=== PATIENT | male | born 1950 ===

== ENCOUNTER 2016-12-03 01:29 | Inpatient (IN) | payer MEDICAID, OTHER ==
[2016-12-03 01:29] VITALS: BMI 29.5
[2016-12-03 01:49] VITALS: O2SAT 100
--- NOTE | 2016-12-03 01:53 | ED PDOC ---
HPI: Psych/Substance Abuse Time Seen by Provider: 12/03/16 01:44 Chief Complaint (Nursing): Psychiatric Evaluation Chief Complaint (Provider): Crisis eval History Per: Patient Additional Complaint(s): 66 y/o male, whose PMHx includes schizophrenia, bipolar disorder, and drug abuse , presents to ED for evaluation of suicidal ideations. Pt admits to a plan, he wants to hang himself. No homicidal ideations. no physical complaints at this time. Past Medical History Reviewed: Nursing Documentation, Vital Signs Vital Signs: Last Vital Signs Temp 98 F 12/03/16 01:45 Pulse 81 12/03/16 01:45 Resp 16 12/03/16 01:45 BP 126/79 12/03/16 01:45 Pulse Ox 100 12/03/16 01:45 - Medical History PMH: Anxiety, Arthritis (osteoarthritis), Asthma, Bipolar Disorder, Bronchitis, COPD, Depression, Diabetes (type II), GERD, HTN, Hypercholesterolemia, Hyperlipidemia, Pneumonia, Schizophrenia Denies: Alzheimer's Disease, Anemia, Atrial Fibrillation, Cardia Arrhythmia, CHF, Crohn's Disease, Dementia, Diverticulitis, Emphysema, Fractures, Gastritis , Gall Bladder Disease, Hepatitis, HIV (Negative HIV test October 2014), Hyperthyroidism, Hypothyroidism, Kidney Stones, Migraine, Mitral Valve Prolapse , Multiple Sclerosis, Osteoporosis, Pancreatitis, Parkinson's Disease, Peripheral Edema, Personality Disorder, Pulmonary Embolism, Chronic Kidney Disease, Rheumatoid Arthritis, Seizures, Sickle Cell Disease, Sexually Transmitted Disease, Sleep Apnea, TIA - Surgical History Surgical History: Denies: Appendectomy, CABG, Carotid Endarterectomy, Cholecystectomy, Coronary Stent, Pacemaker, Tonsillectomy - Family History Family History: States: Unknown Family Hx, Hypertension - Living Arrangements Living Arrangements: Other - Social History Current smoker - smoking cessation education provided: No Alcohol: Occasional Drugs: Denies, Cannabis, Cocaine - Immunization History Hx Tetanus Toxoid Vaccination: No Hx Influenza Vaccination: No Hx Pneumococcal Vaccination: No - Home Medications Home Medications: Ambulatory Orders Medication Instructions Recorded Aspirin [Ecotrin] 81 mg PO DAILY #30 tabec 09/28/16 Folic Acid 1 mg PO DAILY tab 09/28/16 Multimineral/Multivitamin 1 tab PO DAILY tab 09/28/16 [Therapeutic-M Tab] Thiamine [Vitamin B1 Tab] 100 mg PO DAILY tab 09/28/16 Albuterol Sulfate [Proair Hfa] 2 puff IH RQ4 PRN inh 10/15/16 Benztropine [Cogentin] 2 mg PO BID #28 tab 10/15/16 Lisinopril [Zestril] 10 mg PO DAILY #30 tab 10/15/16 Metoprolol Tartrate [Lopressor] 25 mg PO BID #60 tab 10/15/16 Simvastatin 10 mg PO DAILY #30 tablet 10/15/16 cloNIDine [Catapres] 0.1 mg PO TID #90 tab 10/15/16 fluPHENAZine [Fluphenazine HCl] 10 mg PO Q12 #28 tab 10/15/16 traZODone [Desyrel] 100 mg PO HS #28 tab 10/15/16 - Allergies Allergies/Adverse Reactions: Allergies Allergy/AdvReac Type Severity Reaction Status Date / Time quetiapine Allergy palpitation Verified 12/03/16 01:45 s quetiapine fumarate AdvReac Severe palpitation Verified 12/03/16 01:45 [From Seroquel] s Review of Systems ROS Statement: Except As Marked, All Systems Reviewed And Found Negative Physical Exam - Reviewed Nursing Documentation Reviewed: Yes Vital Signs Reviewed: Yes - Physical Exam Appears: Positive for: Well, Non-toxic, No Acute Distress Head Exam: Positive for: ATRAUMATIC, NORMAL INSPECTION, NORMOCEPHALIC Skin: Positive for: Normal Color, Warm, DRY Eye Exam: Positive for: EOMI, Normal appearance, PERRL ENT: Positive for: Normal ENT Inspection Neck: Positive for: Normal, Painless ROM Cardiovascular/Chest: Positive for: Regular Rate, Rhythm Respiratory: Positive for: CNT, Normal Breath Sounds Gastrointestinal/Abdominal: Positive for: Normal Exam, Bowel Sounds, Soft Back: Positive for: Normal Inspection Extremity: Positive for: Normal ROM Neurologic/Psych: Positive for: Alert, Oriented - Laboratory Results Result Diagrams: 12/03/16 02:35 12/03/16 02:35 - ECG O2 Sat by Pulse Oximetry: 100 Medical Decision Making Medical Decision Making: Pt underwent crisis eval, see note. To be admitted for depression Pt medically cleared Disposition - Clinical Impression Clinical Impression: Depression - Patient ED Disposition Is Patient to be Admitted: Yes - Disposition Disposition Time: 04:57 Condition: STABLE - POA Present On Arrival: None
[2016-12-03 03:09] LABS: BASO % 0.8 % (0.0-2.0); EOS # 0.1 K/uL (0.0-0.7); EOS % 1.5 % (0.0-4.0); HEMATOCRIT 40.2 % (35.0-51.0); LYMPH # 1.7 K/uL (1.0-4.3); LYMPH % 34.8 % (20.0-40.0); MEAN CELL VOLUME 89.6 fl (80.0-94.0); MEAN CORPUSCULAR HEMOGLOBIN 29.7 pg (27.0-31.0); MEAN CORPUSCULAR HGB CONC 33.1 g/dL (33.0-37.0); MEAN PLATELET VOLUME 8.9 fl (7.2-11.7); MONO # 0.4 K/uL (0.0-0.8); MONO % 8.8 % (0.0-10.0); NEUT # 2.7 K/uL (1.8-7.0); NEUT % 54.1 % (50.0-75.0); NRBC % 0.1 % (0.0-0.0); RED CELL DISTRIBUTION WIDTH 15.4 % (11.5-14.5)
[2016-12-03 03:17] LABS: RBC URINE 1 /hpf (0-3); URINE BACTERIA RARE (<OCC); URINE BILIRUBIN NEGATIVE (NEGATIVE); URINE BLOOD NEGATIVE (NEGATIVE); URINE COLOR YELLOW (YELLOW); URINE GLUCOSE (UA) NEG (Normal); URINE KETONE NEGATIVE (NEGATIVE); URINE LEUKOCYTE ESTERASE NEG Leu/uL (Negative); URINE PROTEIN NEGATIVE (NEGATIVE); WBC URINE 1 /hpf (0-5)
[2016-12-03 03:19] LABS: CHLORIDE 109 mmol/L (98-107); POTASSIUM 3.7 MMOL/L (3.6-5.0); SODIUM 142 mmol/l (132-148)
[2016-12-03 03:21] LABS: ALB/GLOB RATIO 1.1 (1.0-2.1); ALKALINE PHOSPHATASE 36 U/L (38-126); AST/SGOT 30 U/L (17-59); BILIRUBIN,TOTAL 0.5 mg/dl (0.2-1.3); BLOOD UREA NITROGEN 8 mg/dl (9-20); CARBON DIOXIDE 20 mmol/L (22-30); GFR AFRICAN-AMERICAN > 60; TOTAL PROTEIN 6.6 G/DL (6.3-8.2)
[2016-12-03 03:22] LABS: ALCOHOL SERUM 50 mg/dl (0-10); ALT/SGPT 15 U/L (21-72); CALCIUM 8.5 mg/dL (8.4-10.2); GLUCOSE,RANDOM 136 mg/dL (75-110)
[2016-12-03] MEDS ORDERED: Alum-Mag Hydrox-Simethicone Susp (30 mL) PO PRN (05:40)
[2016-12-03] MEDS ORDERED: Bismuth Subsalicylate 262 mg/15 ml Sus (240 ml) PO PRN (05:40)
[2016-12-03] MEDS ORDERED: Magnesium Hydroxide Susp 30 ml UD PO PRN (05:40)
[2016-12-03 07:03] LABS: IRON 76 ug/dL (49-181)
[2016-12-03 07:21] LABS: T4 7.6 ug/dl (5.5-11.0)
[2016-12-03 07:34] LABS: THYROID STIMULATING HORMONE 0.43 mIU/ML (0.46-4.68)
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
--- NOTE | 2016-12-03 12:10 | CP.PCM.CON ---
History of Present Illness - History of Present Illness History of Present Illness: 66 yo male with history of heroin used and alcohol abuse admitted to [facility] because of hearing voices and suicidal ideation. Pt was recently discharged on after getting admitted for the same reason. Review of Systems - Review of Systems All systems: reviewed and no additional remarkable complaints except (aside from those mentioned above, 12 point system review were negative by me) Past Patient History - Infectious Disease Hx of Infectious Diseases: None - Tetanus Immunizations Tetanus Immunization: Allergy to Tetanus Vaccine, Unknown - Past Medical History & Family History Past Medical History?: Yes - Past Social History Smoking Status: Light Smoker < 10 Cigarettes Daily Alcohol: Occasional Drugs: Denies, Cannabis, Cocaine - CARDIAC Hx Atrial Fibrillation: No Hx Cardia Arrhythmia: No Hx Congestive Heart Failure: No Hx Hypercholesterolemia: Yes Hx Hypertension: Yes Hx Mitral Valve Prolapse: No Hx Pacemaker: No Hx Peripheral Edema: No - PULMONARY Hx Asthma: Yes Hx Bronchitis: Yes Hx Chronic Obstructive Pulmonary Disease (COPD): Yes Hx Emphysema: No Hx Pneumonia: Yes Hx Pulmonary Embolism: No Hx Sleep Apnea: No - NEUROLOGICAL Hx Alzheimer's Disease: No Hx Dementia: No Hx Migraine: No Hx Multiple Sclerosis: No Hx Parkinson's Disease: No Hx Seizures: No Hx Transient Ischemic Attacks (TIA): No - HEENT Hx HEENT Problems: No - RENAL Hx Chronic Kidney Disease: No Hx Kidney Stones: No - ENDOCRINE/METABOLIC Hx Hyperthyroidism: No Hx Hypothyroidism: No - HEMATOLOGICAL/ONCOLOGICAL Hx Anemia: No Hx Human Immunodeficiency Virus (HIV): No (Negative HIV test October 2014) Hx Sickle Cell Disease: No - INTEGUMENTARY Hx Dermatological Problems: No - MUSCULOSKELETAL/RHEUMATOLOGICAL Hx Arthritis: Yes (osteoarthritis) Hx Falls: Yes Hx Fractures: No Hx Osteoporosis: No Hx Rheumatoid Arthritis: No - GASTROINTESTINAL Hx Crohn's Disease: No Hx Diverticulitis: No Hx Gall Bladder Disease: No Hx Gastritis: No Hx Pancreatitis: No - GENITOURINARY/GYNECOLOGICAL Hx Sexually Transmitted Disorders: No - PSYCHIATRIC Hx Anxiety: Yes Hx Bipolar Disorder: Yes Hx Depression: Yes Hx Substance Use: Yes - SURGICAL HISTORY Hx Appendectomy: No Hx Carotid Endarterectomy: No Hx Cholecystectomy: No Hx Coronary Artery Bypass Graft: No Hx Coronary Stent: No Hx Tonsillectomy: No - ANESTHESIA Hx Anesthesia: Yes Hx Anesthesia Reactions: No Meds Allergies/Adverse Reactions: Allergies Allergy/AdvReac Type Severity Reaction Status Date / Time quetiapine Allergy palpitation Verified 12/03/16 01:45 s quetiapine fumarate AdvReac Severe palpitation Verified 12/03/16 01:45 [From Seroquel] s - Medications Medications: Current Medications Acetaminophen (Tylenol 325mg Tab) 650 mg PO Q4 PRN PRN Reason: Pain, moderate (4-7) Al Hydrox/Mg Hydrox/Simethicone (Maalox Plus 30 Ml) 30 ml PO Q4 PRN PRN Reason: Dyspepsia Benztropine Mesylate (Cogentin) 2 mg PO Q12 [facility] Bismuth Subsalicylate (Pepto-Bismol) 524 mg PO Q4 PRN PRN Reason: Diarrhea Chlordiazepoxide (Librium) 50 mg PO Q12 [facility] Last Admin: 12/03/16 09:30 Dose: 50 mg Diphenhydramine HCl (Benadryl) 50 mg PO HS PRN PRN Reason: Sleep Fluphenazine HCl (Prolixin) 10 mg PO Q12 [facility] Haloperidol (Haldol) 5 mg PO Q4 PRN PRN Reason: Agitation Haloperidol Lactate (Haldol) 5 mg IM Q4 PRN PRN Reason: Agitation Ibuprofen (Motrin Tab) 600 mg PO Q8 PRN PRN Reason: Pain, moderate (4-7) Loperamide HCl (Imodium) 2 mg PO QID PRN PRN Reason: Diarrhea Lorazepam (Ativan) 2 mg PO Q4 PRN PRN Reason: Other Magnesium Hydroxide (Milk Of Magnesia) 30 ml PO HS PRN PRN Reason: Constipation Trazodone HCl (Desyrel) 100 mg PO HS [facility] Physical Exam - Constitutional Appears: No Acute Distress - Head Exam Head Exam: ATRAUMATIC - Eye Exam Eye Exam: absent: Scleral icterus - ENT Exam ENT Exam: Mucous Membranes Moist - Neck Exam Neck exam: Negative for: Meningismus - Respiratory Exam Respiratory Exam: absent: Rhonchi, Wheezes, Respiratory Distress - Cardiovascular Exam Cardiovascular Exam: REGULAR RHYTHM, +S1, +S2 - GI/Abdominal Exam GI & Abdominal Exam: Soft. absent: Tenderness - Rectal Exam Rectal Exam: Deferred - Back Exam Back exam: NORMAL INSPECTION - Neurological Exam Neurological exam: Alert - Psychiatric Exam Psychiatric exam: Flat Affect - Skin Skin Exam: Dry Results - Vital Signs Recent Vital Signs: Last Vital Signs Temp 95.9 F L 12/03/16 06:00 Pulse 66 12/03/16 06:00 Resp 18 12/03/16 06:00 BP 142/63 12/03/16 06:00 Pulse Ox 100 12/03/16 04:57 - Labs Result Diagrams: 12/03/16 02:35 12/03/16 02:35 Labs: Laboratory Results - last 24 hr 12/03/16 12/03/16 12/03/16 06:00 06:00 06:00 Hemoglobin A1c 6.3 Iron TIBC % Saturation Ferritin 79.7 Triglycerides 103 D Cholesterol 140 LDL Cholesterol Direct 73 HDL Cholesterol 50 Vitamin B12 267 Free T4 1.09 Thyroxine (T4) 7.60 TSH 3rd Generation 0.43 L 12/03/16 06:00 Hemoglobin A1c Iron 76 TIBC 263 % Saturation 29 Ferritin Triglycerides Cholesterol LDL Cholesterol Direct HDL Cholesterol Vitamin B12 Free T4 Thyroxine (T4) TSH 3rd Generation Assessment & Plan (1) Suicidal ideation Status: Acute Comment: psyche is managing (2) HTN (hypertension) Status: Chronic Priority: Medium Comment: BP stable. continue Metoprolol 25mg PO BID. Hold on Lisinopril and Clonidine (3) Asthma Status: Chronic Priority: Low Comment: asymptomatic. Albuterol inhaler 2 puffs q 4hrs prn for SOB or wheezing
[2016-12-03] MEDS ORDERED: Albuterol HFA 90 mcg/actuation (8 g) IH PRN (12:17)
--- NOTE | 2016-12-03 16:03 | RAD ---
HISTORY: med screening COMPARISON: Chest x-ray performed 10/15/16 TECHNIQUE: Chest, one view. FINDINGS: LUNGS: No focal consolidation. Please note that chest x-ray has limited sensitivity for the detection of pulmonary masses. PLEURA: No significant pleural effusion identified. No definite pneumothorax . CARDIOVASCULAR: Heart size appears within normal limits. Dense atherosclerotic calcification of the aortic knob. OSSEOUS STRUCTURES: No acute osseous abnormality identified. VISUALIZED UPPER ABDOMEN: Unremarkable. OTHER FINDINGS: None. IMPRESSION: No focal consolidation, significant pleural effusion, or definite pneumothorax identified.
[2016-12-03 17:45] LABS: FOLATE 14.7 ng/mL
--- NOTE | 2016-12-04 00:10 | CARD ---
APPROVED REPORT EKG Measurement Heart [id number] <Conclusion> Normal sinus rhythm Normal ECG
[2016-12-04] MEDS: Multivitamin With Minerals Tab PO SCH (08:51)
--- NOTE | 2016-12-04 08:56 | PCM.PYCHPN ---
Psychiatric Progress Note - Psychiatric Progress Note Patient seen today, length of contact: Patient evaluated, case discussed with team, chart reviewed, 35 min Patient Chief Complaint: "I am hearing voices telling me to kill myself" Problems Identified/Issues Discussed: Patient continues to reports command auditory hallucinations to kill himself by hanging. He continues to feel depressed and hopeless. He is reporting stomach cramps from heroin withdrawal and discussed a desire to stop using heroin. He requested to stop trazodone because he feels it is "too strong" for him, but denied any actual adverse effects from the medication. Medication Change: Yes (Taper Librium, stop Trazodone) Medical Record Reviewed: Yes Consults ordered or reviewed: Medicine consult appreciated Mental Status Examination - Cognitive Function Orientation: Person, Place, Situation, Time Memory: Intact Attention: WNL Concentration: WNL Association: WNL Fund of Knowledge: [facility] Decription of patient's judgement and insights: Poor insight/ judgment - Mood Mood: Depressed - Affect Affect: Constricted - Speech Speech: Appropriate - Formal Thought Process Formal Thought Process: Hallucinations Psychotic Thoughts and Behaviors: +CAH to kill himself - Suicidal Ideation Suicidal Ideation: Yes - Homicidal Ideation Homicidal Ideation: No Goal/Treatment Plan - Goal/Treatment Plan Need for Continued Stay: Remain at risks for inpatient hospitalization, Severe depression anxiety, Discharge may exacerbated symptoms, Severe functional impairment Progress Toward Problem(s) and Goals/Treatment Plan: 66 yo male w/ h/o schizoaffective disorder, presents acutely decompensated, w/ hallucinations and suicidal ideation, in the context of heroin/benzodiazepine/ marijuana abuse and non-compliance with medications. -Medicine consult appreciated -Continue Prolixin 10 mg PO Q12 hr, Benztropin 2 mg PO BID -Stop Trazodone 100 mg PO HS -PRNs for Opioid withdrawal -Taper Librium -Individual and group therapy -1:1 as the patient will not contract for safety at this time Estimated Date of D/C: 12/10/16
[2016-12-05] MEDS: Multivitamin With Minerals Tab PO SCH (08:14)
--- NOTE | 2016-12-05 10:02 | PCM.PYCHPN ---
Psychiatric Progress Note - Psychiatric Progress Note Patient seen today, length of contact: Patient evaluated, case discussed with team, chart reviewed, 35 min Patient Chief Complaint: "I am hearing voices telling me to kill myself" Problems Identified/Issues Discussed: Patient continues to reports command auditory hallucinations to kill himself by hanging. He has told various staff members that he does not want to live and wants to kill himself. He keeps walking to the door as if he wants to elope. He is bizarre at times and required PRN medication last night for agitation. Patient submitted a 48 hour letter and will be screened for involuntary admission as he is an active danger to himself at this time. Medication Change: Yes (Stop Librium) Medical Record Reviewed: Yes Mental Status Examination - Cognitive Function Orientation: Person, Place, Situation, Time Memory: Intact Attention: WNL Concentration: WNL Association: [facility] Fund of Knowledge: [facility] Decription of patient's judgement and insights: Poor insight/ judgment - Mood Mood: Depressed - Affect Affect: Constricted - Speech Speech: Appropriate - Formal Thought Process Formal Thought Process: Hallucinations Psychotic Thoughts and Behaviors: +CAH to kill himself - Suicidal Ideation Suicidal Ideation: Yes Plan: Hang himself - Homicidal Ideation Homicidal Ideation: No Goal/Treatment Plan - Goal/Treatment Plan Need for Continued Stay: Remain at risks for inpatient hospitalization, Severe depression anxiety, Discharge may exacerbated symptoms, Severe functional impairment Progress Toward Problem(s) and Goals/Treatment Plan: 66 yo male w/ h/o schizoaffective disorder, presents acutely decompensated, w/ hallucinations and suicidal ideation, in the context of heroin/benzodiazepine/ marijuana abuse and non-compliance with medications. Patient submitted a 48 hour letter and will be screened for involuntary admission as he is an active danger to himself at this time. -Continue Prolixin 10 mg PO Q12 hr, Benztropin 2 mg PO BID -PRNs for Opioid withdrawal -Stop Librium -Individual and group therapy -1:1 as the patient will not contract for safety at this time -Screen for involuntary commitment Estimated Date of D/C: 12/10/16
[2016-12-06] MEDS: Multivitamin With Minerals Tab PO SCH (12:22)
--- NOTE | 2016-12-06 13:22 | PCM.PYCHPN ---
Psychiatric Progress Note - Psychiatric Progress Note Patient seen today, length of contact: Patient evaluated, case discussed with team, chart reviewed, 35 min Patient Chief Complaint: "I am hearing voices telling me to kill myself" Problems Identified/Issues Discussed: Patient continues to reports command auditory hallucinations to kill himself. He can not contract for safety and needs continued 1:1. He was screened by [facility] yesterday and was rejected due to concerns that he may have altered mental status, so a neurology consult was requested by [facility] for medical clearance. Medication Change: No Medical Record Reviewed: Yes Mental Status Examination - Cognitive Function Orientation: Person, Place, Situation, Time Memory: Intact Attention: WNL Concentration: WNL Association: WNL Fund of Knowledge: [facility] Decription of patient's judgement and insights: Poor insight/ judgment - Mood Mood: Depressed - Affect Affect: Constricted - Speech Speech: Appropriate - Formal Thought Process Formal Thought Process: Hallucinations Psychotic Thoughts and Behaviors: +CAH to kill himself - Suicidal Ideation Suicidal Ideation: Yes - Homicidal Ideation Homicidal Ideation: No Goal/Treatment Plan - Goal/Treatment Plan Need for Continued Stay: Remain at risks for inpatient hospitalization, Severe depression anxiety, Discharge may exacerbated symptoms, Severe functional impairment Progress Toward Problem(s) and Goals/Treatment Plan: 66 yo male w/ h/o schizoaffective disorder, presents acutely decompensated, w/ hallucinations and suicidal ideation, in the context of heroin/benzodiazepine/ marijuana abuse and non-compliance with medications. -Continue Prolixin 10 mg PO Q12 hr, Benztropin 2 mg PO BID -PRNs for Opioid withdrawal -Neurology consult for evaluation of possible neurological issues causing current presentation and/or possible altered mental status; patient will not be accepted to [facility] without clearance from neurology -Individual and group therapy -1:1 as the patient will not contract for safety at this time Estimated Date of D/C: 12/11/16
--- NOTE | 2016-12-06 16:03 | CP.PCM.CON ---
History of Present Illness - History of Present Illness History of Present Illness: Mr. Weaver is a 66-year-old homeless man who brought himself into ED with complaints of hearing voices and feeling suicidal. The voices are telling him to kill himself. According to nursing, the patient has been more violent than usual and more combative than usual. He uses heroin and drinks alcohol daily. He has tried to wrap different objects around his neck since being in the hospital. These include a blood pressure cuff and a TV cord. Neurology was consulted to assist with the management and care. Review of Systems - Review of Systems Systems not reviewed;Unavailable: Altered Mental Status, Uncooperative, Psychotic Past Patient History - Infectious Disease Hx of Infectious Diseases: None - Tetanus Immunizations Tetanus Immunization: Allergy to Tetanus Vaccine, Unknown - Past Medical History & Family History Past Medical History?: Yes - Past Social History Smoking Status: Light Smoker < 10 Cigarettes Daily Alcohol: Occasional Drugs: Denies, Cannabis, Cocaine - CARDIAC Hx Atrial Fibrillation: No Hx Cardia Arrhythmia: No Hx Congestive Heart Failure: No Hx Hypercholesterolemia: Yes Hx Hypertension: Yes Hx Mitral Valve Prolapse: No Hx Pacemaker: No Hx Peripheral Edema: No - PULMONARY Hx Asthma: Yes Hx Bronchitis: Yes Hx Chronic Obstructive Pulmonary Disease (COPD): Yes Hx Emphysema: No Hx Pneumonia: Yes Hx Pulmonary Embolism: No Hx Sleep Apnea: No - NEUROLOGICAL Hx Alzheimer's Disease: No Hx Dementia: No Hx Migraine: No Hx Multiple Sclerosis: No Hx Parkinson's Disease: No Hx Seizures: No Hx Transient Ischemic Attacks (TIA): No - HEENT Hx HEENT Problems: No - RENAL Hx Chronic Kidney Disease: No Hx Kidney Stones: No - ENDOCRINE/METABOLIC Hx Hyperthyroidism: No Hx Hypothyroidism: No - HEMATOLOGICAL/ONCOLOGICAL Hx Anemia: No Hx Human Immunodeficiency Virus (HIV): No (Negative HIV test October 2014) Hx Sickle Cell Disease: No - INTEGUMENTARY Hx Dermatological Problems: No - MUSCULOSKELETAL/RHEUMATOLOGICAL Hx Arthritis: Yes (osteoarthritis) Hx Falls: Yes Hx Fractures: No Hx Osteoporosis: No Hx Rheumatoid Arthritis: No - GASTROINTESTINAL Hx Crohn's Disease: No Hx Diverticulitis: No Hx Gall Bladder Disease: No Hx Gastritis: No Hx Pancreatitis: No - GENITOURINARY/GYNECOLOGICAL Hx Sexually Transmitted Disorders: No - PSYCHIATRIC Hx Anxiety: Yes Hx Bipolar Disorder: Yes Hx Depression: Yes Hx Substance Use: Yes - SURGICAL HISTORY Hx Appendectomy: No Hx Carotid Endarterectomy: No Hx Cholecystectomy: No Hx Coronary Artery Bypass Graft: No Hx Coronary Stent: No Hx Tonsillectomy: No - ANESTHESIA Hx Anesthesia: Yes Hx Anesthesia Reactions: No Meds Allergies/Adverse Reactions: Allergies Allergy/AdvReac Type Severity Reaction Status Date / Time quetiapine Allergy palpitation Verified 12/03/16 01:45 s quetiapine fumarate AdvReac Severe palpitation Verified 12/03/16 01:45 [From Seroquel] s - Medications Medications: Current Medications Acetaminophen (Tylenol 325mg Tab) 650 mg PO Q4 PRN PRN Reason: Pain, moderate (4-7) Al Hydrox/Mg Hydrox/Simethicone (Maalox Plus 30 Ml) 30 ml PO Q4 PRN PRN Reason: Dyspepsia Albuterol (Ventolin Hfa 90 Mcg/Actuation (8 G)) 2 puff IH RQ4 PRN PRN Reason: Shortness of Breath Aspirin (Ecotrin) 81 mg PO DAILY [facility] Last Admin: 12/06/16 12:22 Dose: 81 mg Benztropine Mesylate (Cogentin) 2 mg PO Q12 [facility] Last Admin: 12/06/16 12:23 Dose: 2 mg Bismuth Subsalicylate (Pepto-Bismol) 524 mg PO Q4 PRN PRN Reason: Diarrhea Diphenhydramine HCl (Benadryl) 50 mg PO HS PRN PRN Reason: Sleep Last Admin: 12/05/16 01:27 Dose: 50 mg Fluphenazine HCl (Prolixin) 10 mg PO Q12 [facility] Last Admin: 12/06/16 12:23 Dose: 10 mg Folic Acid (Folic Acid) 1 mg PO DAILY [facility] Last Admin: 12/06/16 12:23 Dose: 1 mg Haloperidol (Haldol) 5 mg PO Q4 PRN PRN Reason: Agitation Last Admin: 12/05/16 01:27 Dose: 5 mg Haloperidol Lactate (Haldol) 5 mg IM Q4 PRN PRN Reason: Agitation Ibuprofen (Motrin Tab) 600 mg PO Q8 PRN PRN Reason: Pain, moderate (4-7) Loperamide HCl (Imodium) 2 mg PO QID PRN PRN Reason: Diarrhea Last Admin: 12/04/16 08:53 Dose: 2 mg Lorazepam (Ativan) 2 mg PO Q4 PRN PRN Reason: Other Last Admin: 12/05/16 10:46 Dose: 2 mg Magnesium Hydroxide (Milk Of Magnesia) 30 ml PO HS PRN PRN Reason: Constipation Metoprolol Tartrate (Lopressor) 25 mg PO BID [facility] Last Admin: 12/06/16 12:31 Dose: 25 mg Multivitamins/Minerals (Therapeutic-M Tab) 1 tab PO DAILY [facility] Last Admin: 12/06/16 12:22 Dose: 1 tab Thiamine HCl (Vitamin B1 Tab) 100 mg PO DAILY [facility] Last Admin: 12/06/16 12:22 Dose: 100 mg Zolpidem Tartrate (Ambien) 5 mg PO HS PRN PRN Reason: Insomnia Last Admin: 12/04/16 22:58 Dose: 5 mg Physical Exam - Constitutional Appears: No Acute Distress, Unkempt, Agitated - Head Exam Head Exam: ATRAUMATIC, NORMAL INSPECTION, NORMOCEPHALIC - Eye Exam Eye Exam: EOMI, Normal appearance, PERRL - ENT Exam ENT Exam: Mucous Membranes Moist, Normal Exam - Respiratory Exam Respiratory Exam: Clear to Auscultation Bilateral, NORMAL BREATHING PATTERN - Cardiovascular Exam Cardiovascular Exam: REGULAR RHYTHM, +S1, +S2 - GI/Abdominal Exam GI & Abdominal Exam: Normal Bowel Sounds, Soft. absent: Tenderness - Rectal Exam Rectal Exam: Deferred - Extremities Exam Extremities exam: Positive for: normal inspection - Back Exam Back exam: NORMAL INSPECTION - Neurological Exam Neurological exam: Alert, CN II-XII Intact, Normal Gait, Oriented x3, Reflexes Normal - Expanded Neurological Exam Expanded Patient oriented to: person, place, time Cranial nerves: EOM's Intact: Normal, Facial Sensation: Normal Cerebellar Function: Finger to Nose: Normal Upper motor neuron: Babinski Sign: Normal Sensory exam: Lower Extremity Light Touch: Normal, Lower Extremity Pin Prick: Normal, Upper Extremity Light Touch: Normal, Upper Extremity Pin Prick: Normal Neuro motor strength exam: Left Upper Extremity: 5, Right Upper Extremity: 5, Left Lower Extremity: 5, Right Lower Extremity: 5 DTR: Achilles Tendon Left: 2+, Achilles Tendon Right: 2+, Bicep Left: 2+, Bicep Right: 2+, Brachioradialis Left: 2+, Brachioradialis Right: 2+, Patellar Left: 2 +, Patellar Right: 2+, Tricep Left: 2+, Tricep Right: 2+ - Psychiatric Exam Psychiatric exam: Agitated, Depressed, Suicidal Ideation - Skin Skin Exam: Dry, Intact, Normal Color, Warm Results - Vital Signs Recent Vital Signs: Last Vital Signs Temp 98.2 F 12/06/16 15:39 Pulse 65 12/06/16 15:39 Resp 18 12/06/16 15:39 BP 131/62 12/06/16 15:39 Pulse Ox 100 12/03/16 04:57 - Labs Result Diagrams: 12/03/16 02:35 12/03/16 02:35 Assessment & Plan (1) Schizoaffective disorder, bipolar type Assessment and Plan: The patient likely has multi-factorial causes to develop hallucinations, depression, agitation, combativeness. The neurochemistry involved is being manipulated by heroin and alcohol in conjunction with his baseline psychiatric illness. I will defer to psychiatry for the management of this patient since there are no focal neurologic deficits and no suspicion of dementia or delirium. Thank you. Status: Acute Priority: High
--- NOTE | 2016-12-07 08:42 | PCM.PYCHPN ---
Psychiatric Progress Note - Psychiatric Progress Note Patient seen today, length of contact: Patient evaluated, case discussed with team, chart reviewed, 35 min Patient Chief Complaint: "I am hearing voices telling me to kill myself" Problems Identified/Issues Discussed: Patient continues to reports command auditory hallucinations to kill himself. He can not contract for safety and needs continued 1:1. He retracted his 48 hour letter yesterday and is agreeable to continued psychiatric treatment. Neurology consult done- no acute neurological deficits or signs of delirium at this time. Medication Change: No Medical Record Reviewed: Yes Consults ordered or reviewed: Neurology consult Mental Status Examination - Cognitive Function Orientation: Person, Place, Situation, Time Memory: Intact Attention: WNL Concentration: WNL Association: WNL Fund of Knowledge: [place] Decription of patient's judgement and insights: Poor insight/ judgment - Mood Mood: Depressed - Affect Affect: Constricted - Speech Speech: Appropriate - Formal Thought Process Formal Thought Process: Hallucinations Psychotic Thoughts and Behaviors: +CAH to kill himself - Suicidal Ideation Suicidal Ideation: Yes - Homicidal Ideation Homicidal Ideation: No Goal/Treatment Plan - Goal/Treatment Plan Need for Continued Stay: Remain at risks for inpatient hospitalization, Severe depression anxiety, Discharge may exacerbated symptoms, Severe functional impairment Progress Toward Problem(s) and Goals/Treatment Plan: 66 yo male w/ h/o schizoaffective disorder, presents acutely decompensated, w/ hallucinations and suicidal ideation, in the context of heroin/benzodiazepine/ marijuana abuse and non-compliance with medications. -Continue Prolixin 10 mg PO Q12 hr, Benztropin 2 mg PO BID -No current complaints of opioid or etoh withdrawal -Neurology consult appreciated -Individual and group therapy -1:1 as the patient will not contract for safety at this time Estimated Date of D/C: 12/11/16
[2016-12-07] MEDS: Multivitamin With Minerals Tab PO SCH (08:50)
[2016-12-08] MEDS: Multivitamin With Minerals Tab PO SCH (09:43)
--- NOTE | 2016-12-08 10:24 | PCM.PYCHPN ---
Psychiatric Progress Note - Psychiatric Progress Note Patient seen today, length of contact: Patient evaluated, case discussed with team, chart reviewed, 35 min Patient Chief Complaint: "I am hearing voices telling me to kill myself" Problems Identified/Issues Discussed: Patient continues to reports command auditory hallucinations to kill himself, but reports that his mood is improving and that he does not have an ideation to harm himself at this time despite the CAH. He reports that he would like to leave the hospital soon. Medication Change: No Medical Record Reviewed: Yes Mental Status Examination - Cognitive Function Orientation: Person, Place, Situation, Time Memory: Intact Attention: WNL Concentration: WNL Association: WNL Fund of Knowledge: [facility] Decription of patient's judgement and insights: Poor insight/ judgment - Mood Mood: Depressed - Affect Affect: Constricted - Speech Speech: Appropriate - Formal Thought Process Formal Thought Process: Hallucinations Psychotic Thoughts and Behaviors: +CAH to kill himself - Suicidal Ideation Suicidal Ideation: No Plan: Denies active ideation to harm himself despite CAH - Homicidal Ideation Homicidal Ideation: No Goal/Treatment Plan - Goal/Treatment Plan Need for Continued Stay: Remain at risks for inpatient hospitalization, Severe depression anxiety, Discharge may exacerbated symptoms, Severe functional impairment Progress Toward Problem(s) and Goals/Treatment Plan: 66 yo male w/ h/o schizoaffective disorder, presents acutely decompensated, w/ hallucinations and suicidal ideation, in the context of heroin/benzodiazepine/ marijuana abuse and non-compliance with medications. -Continue Prolixin 10 mg PO Q12 hr, Benztropin 2 mg PO BID -No current complaints of opioid or etoh withdrawal -Neurology consult appreciated -Individual and group therapy -1:1 for suicide precaution Estimated Date of D/C: 12/11/16
[2016-12-09] MEDS: Multivitamin With Minerals Tab PO SCH (08:14)
--- NOTE | 2016-12-09 10:42 | PCM.PYCHPN ---
Psychiatric Progress Note - Psychiatric Progress Note Patient seen today, length of contact: Patient evaluated, case discussed with team, chart reviewed, 35 min Patient Chief Complaint: "I'm feeling better." Problems Identified/Issues Discussed: Patient continues to reports that his mood is improving. He reports that he no longer hears auditory hallucinations. He is more alert with brighter affect. He has not slept well for the past two night and reports improved appetite. He denies current SI, but due to patient's history of mood lability and many suicide attempts, will continue to monitor with 1:1 for an additional day. Medication Change: No Medical Record Reviewed: Yes Mental Status Examination - Cognitive Function Orientation: Person, Place, Situation, Time Memory: Intact Attention: WNL Concentration: WNL Association: WNL Fund of Knowledge: WNL Decription of patient's judgement and insights: Poor insight/ judgment - Mood Mood: Depressed - Affect Affect: Constricted - Speech Speech: Appropriate - Formal Thought Process Formal Thought Process: No Impairment Psychotic Thoughts and Behaviors: Denies AH/VH/paranoia/delusions - Suicidal Ideation Suicidal Ideation: No - Homicidal Ideation Homicidal Ideation: No Goal/Treatment Plan - Goal/Treatment Plan Need for Continued Stay: Remain at risks for inpatient hospitalization, Severe depression anxiety, Discharge may exacerbated symptoms, Severe functional impairment Progress Toward Problem(s) and Goals/Treatment Plan: 66 yo male w/ h/o schizoaffective disorder, presented acutely decompensated, w/ hallucinations and suicidal ideation, in the context of heroin/benzodiazepine/ marijuana abuse and non-compliance with medications, now starting to improve clinically. -Continue Prolixin 10 mg PO Q12 hr, Benztropine 2 mg PO BID -No current complaints of opioid or etoh withdrawal -Neurology consult appreciated -Individual and group therapy -1:1 for suicide precaution Estimated Date of D/C: 12/11/16
[2016-12-09] MEDS ORDERED: NICOTINE 2 MG GUM PO PRN (13:03)
--- NOTE | 2016-12-10 08:06 | PCM.PYCHPN ---
Psychiatric Progress Note - Psychiatric Progress Note Patient seen today, length of contact: Patient evaluated, case discussed with team, chart reviewed, 35 min Patient Chief Complaint: "I'm feeling better." Problems Identified/Issues Discussed: Patient continues to reports that his mood is improving. He reports that he no longer hears auditory hallucinations. NO CAH to harm himself. No suicidal ideation/plan/intent. He continues to have poor sleep at night. We discussed discontinuing the 1:1, patient stated he will alert staff if he has any desire to harm himself or if his auditory hallucinations return. Medication Change: No Medical Record Reviewed: Yes Mental Status Examination - Cognitive Function Orientation: Person, Place, Situation, Time Memory: Intact Attention: WNL Concentration: WNL Association: WNL Fund of Knowledge: [facility] Decription of patient's judgement and insights: Poor insight/ judgment - Mood Mood: Depressed - Affect Affect: Constricted - Speech Speech: Appropriate - Formal Thought Process Formal Thought Process: No Impairment Psychotic Thoughts and Behaviors: Denies AH/VH/paranoia/delusions - Suicidal Ideation Suicidal Ideation: No - Homicidal Ideation Homicidal Ideation: No Goal/Treatment Plan - Goal/Treatment Plan Need for Continued Stay: Remain at risks for inpatient hospitalization, Severe depression anxiety, Discharge may exacerbated symptoms, Severe functional impairment Progress Toward Problem(s) and Goals/Treatment Plan: 66 yo male w/ h/o schizoaffective disorder, presented acutely decompensated, w/ hallucinations and suicidal ideation, in the context of heroin/benzodiazepine/ marijuana abuse and non-compliance with medications, now starting to improve clinically. -Continue Prolixin 10 mg PO Q12 hr, Benztropine 2 mg PO BID -No current complaints of opioid or etoh withdrawal -Neurology consult appreciated -Individual and group therapy -Discontinue 1:1 at this time due to the patient's clinical improvement, will do Q15 checks Estimated Date of D/C: 12/12/16
[2016-12-10] MEDS: Multivitamin With Minerals Tab PO SCH (09:22)
[2016-12-11 05:50] VITALS: RESP 18; TEMP 98.1
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
[2016-12-11] MEDS: Multivitamin With Minerals Tab PO SCH (08:39)
[2016-12-11 08:40] VITALS: BP 119/66; PULSE 80
== END 2016-12-11 09:56 | disposition home or self-care (01) | DRG 430 ==
LOC: H.ER 01:29 → H.ERHOLD 04:56 → H.STEP 05:37
PROVIDERS: ADMIT Psychiatry & Neurology Psychiatry; ATTEND Psychiatry & Neurology Psychiatry
DX: F25.9 Schizoaffective disorder, unspecified (principal); R45.851 Suicidal ideations; J44.9 Chronic obstructive pulmonary disease, unspecified; E11.9 Type 2 diabetes mellitus without complications; F13.10 Sedative, hypnotic or anxiolytic abuse, uncomplicated; F11.10 Opioid abuse, uncomplicated; Z91.14 Patient's other noncompliance with medication regimen; Z59.0 Homelessness; F12.10 Cannabis abuse, uncomplicated; E78.5 Hyperlipidemia, unspecified; J45.909 Unspecified asthma, uncomplicated; K21.9 Gastro-esophageal reflux disease without esophagitis; I10 Essential (primary) hypertension; E78.00 Pure hypercholesterolemia, unspecified; Z88.7 Allergy status to serum and vaccine

== ENCOUNTER 2018-02-07 16:22 | Emergency (ER) | payer MEDICAID, MEDICARE, OTHER ==
[2018-02-07 16:23] VITALS: BMI 28.2
[2018-02-07] MEDS ORDERED: Multivitamin (MVI) 10 ML, Thiamine 100 MG, Folic Acid 1 MG in Dextrose 5%/0.45% NS 1,00... IV ONE (17:00)
[2018-02-07 17:02] LABS: BASO % 0.6 % (0.0-2.0); EOS # 0.2 K/uL (0.0-0.7); LYMPH # 1.7 K/uL (1.0-4.3); MEAN CELL VOLUME 89.7 fl (80.0-94.0); MEAN CORPUSCULAR HEMOGLOBIN 29.4 pg (27.0-31.0); MEAN CORPUSCULAR HGB CONC 32.8 g/dL (33.0-37.0); MEAN PLATELET VOLUME 8.4 fl (7.2-11.7); MONO # 0.7 K/uL (0.0-0.8); MONO % 10.7 % (0.0-10.0); NEUT # 3.8 K/uL (1.8-7.0); NEUT % 58.7 % (50.0-75.0); RBC 4.74 Mil/uL (4.40-5.90); RED CELL DISTRIBUTION WIDTH 13.2 % (11.5-14.5); WHITE BLOOD COUNT 6.4 K/uL (4.8-10.8)
--- NOTE | 2018-02-07 17:24 | CT ---
Date of service: 02/07/2018 PROCEDURE: CT HEAD WITHOUT CONTRAST. HISTORY: AMS COMPARISON: Noncontrast head CT performed 09/13/17 TECHNIQUE: Axial computed tomography images were obtained through the head/brain without intravenous contrast. Radiation dose: Total exam DLP = 961.37 mGy-cm. This CT exam was performed using one or more of the following dose reduction techniques: Automated exposure control, adjustment of the mA and/or kV according to patient size, and/or use of iterative reconstruction technique. FINDINGS: HEMORRHAGE: No intracranial hemorrhage. BRAIN: No mass effect or edema. Scattered periventricular and subcortical white matter hypodensities, which are nonspecific, but often seen with chronic microvascular ischemic disease. Please note that MRI with diffusion imaging is more sensitive in the detection of acute ischemic event. VENTRICLES: No hydrocephalus. CALVARIUM: Unremarkable. PARANASAL SINUSES: Unremarkable as visualized. No significant inflammatory changes. MASTOID AIR CELLS: Unremarkable as visualized. No inflammatory changes. OTHER FINDINGS: None. IMPRESSION: Nonspecific white matter changes.
[2018-02-07 17:27] LABS: ALB/GLOB RATIO 1.3 (1.0-2.1); ALBUMIN 4.3 g/dL (3.5-5.0); ALT/SGPT 32 U/L (21-72); AST/SGOT 27 U/L (17-59); BLOOD UREA NITROGEN 15 mg/dl (9-20); CALCIUM 9.4 mg/dL (8.4-10.2); GFR NON-AFRICAN AMERICAN > 60
--- NOTE | 2018-02-07 17:35 | ED PDOC ---
HPI: Altered Mental Status Time Seen by Provider: 02/07/18 16:31 Chief Complaint (Nursing): Altered Mental Status Chief Complaint (Provider): Altered Mental Status History Per: EMS History/Exam Limitations: Clinical Condition (Altered Mental Status) Onset/Duration Of Symptoms: Days Current Symptoms Are (Timing): Still Present Usual Baseline: Unknown Exacerbating Factor(s): Unknown Use Of Anticoag/Antiplatlets: Unknown Additional Complaint(s): 67 y/o male with a PMHx of substance abuse, alcohol abuse and schizoaffective disorder brought in by EMS for evaluation of altered mental status. Patient is a limited historian due to presumed intoxication. History was obtained by EMS who state patient was lingering in front of a store and seen with an unsteady gait. Witnesses called 911 due to patient's unsteady gain. Patient does not remember what happened. Onset of altered mental status is unclear. Patient denies any medical or psychiatric complaints at this time. Previous medical records reviewed and demonstrate patient has been here multiple times for Altered Mental Status and substance abuse. PMD: No Provider Past Medical History Reviewed: Historical Data, Nursing Documentation, Vital Signs Vital Signs: Last Vital Signs Temp 98.2 F 02/07/18 16:27 Pulse 97 H 02/07/18 16:27 Resp 16 02/07/18 16:27 BP 157/66 H 02/07/18 16:27 Pulse Ox 99 02/07/18 16:27 - Medical History PMH: Anxiety, Arthritis, Asthma, Bipolar Disorder, Bronchitis, COPD, Depression , Diabetes, GERD, HTN, Hypercholesterolemia, Hyperlipidemia, Pneumonia, Schizophrenia Denies: Alzheimer's Disease, Anemia, Atrial Fibrillation, Cardia Arrhythmia, CHF, Crohn's Disease, Dementia, Diverticulitis, Emphysema, Fractures, Gastritis , Gall Bladder Disease, Hepatitis, HIV, Hyperthyroidism, Hypothyroidism, Kidney Stones, Migraine, Mitral Valve Prolapse, Multiple Sclerosis, Osteoporosis, Pancreatitis, Parkinson's Disease, Peripheral Edema, Personality Disorder, Pulmonary Embolism, Chronic Kidney Disease, Rheumatoid Arthritis, Seizures, Sickle Cell Disease, Sexually Transmitted Disease, Sleep Apnea, TIA - Surgical History Surgical History: Denies: Appendectomy, CABG, Carotid Endarterectomy, Cholecystectomy, Coronary Stent, Pacemaker, Tonsillectomy - Family History Family History: States: Unknown Family Hx, Hypertension - Immunization History Hx Tetanus Toxoid Vaccination: No Hx Influenza Vaccination: No Hx Pneumococcal Vaccination: No - Home Medications Home Medications: Ambulatory Orders Medication Instructions Recorded Metoprolol Tartrate [Lopressor] 50 mg PO BID #60 tab 09/11/17 Nicotine 21 mg/24 hr [Nicoderm Cq] 1 patch TD DAILY #30 patch 09/11/17 Sertraline [Zoloft] 100 mg PO DAILY #30 tab 09/11/17 metFORMIN [glucOPHAGE] 500 mg PO BID #60 tab 09/11/17 Ondansetron ODT [Zofran ODT] 1 odt PO BID PRN #6 odt 01/14/18 Benztropine [Cogentin] 1 mg PO BID #60 tab 02/06/18 Gabapentin [Neurontin] 300 mg PO BID #60 cap 02/06/18 Gabapentin [Neurontin] 600 mg PO HS #30 tab 02/06/18 Mirtazapine [Remeron] 45 mg PO HS #30 tab 02/06/18 PARoxetine [Paxil] 40 mg PO DAILY #30 tab 02/06/18 fluPHENAZine [Prolixin] 10 mg PO BID #60 tab 02/06/18 traZODone [Desyrel] 100 mg PO HS #30 tab 02/06/18 - Allergies Allergies/Adverse Reactions: Allergies Allergy/AdvReac Type Severity Reaction Status Date / Time quetiapine [From Seroquel] Allergy ANAPHYLAXIS Verified 12/07/17 14:20 Review of Systems Review Of Systems: ROS cannot be obtained secondary to pt's inabilty to answer questions. (Patient denies medical or psychiatric complaints at this time.) Physical Exam - Reviewed Nursing Documentation Reviewed: Yes Vital Signs Reviewed: Yes - Physical Exam Appears: Positive for: Non-toxic, No Acute Distress Head Exam: Positive for: ATRAUMATIC, NORMOCEPHALIC Skin: Positive for: Normal Color, Warm, Dry Eye Exam: Positive for: Normal appearance, EOMI, PERRL Neck: Positive for: Normal, Painless ROM Cardiovascular/Chest: Positive for: Regular Rate, Rhythm. Negative for: Murmur Respiratory: Positive for: Normal Breath Sounds. Negative for: Respiratory Distress Gastrointestinal/Abdominal: Positive for: Normal Exam, Soft. Negative for: Tenderness Extremity: Positive for: Normal ROM. Negative for: Deformity Neurologic/Psych: Positive for: Alert (awake), lan analyst II-XII (intact), Oriented (x2 ). Negative for: Motor/Sensory Deficits - Laboratory Results Result Diagrams: 02/07/18 16:58 02/07/18 16:58 - ECG O2 Sat by Pulse Oximetry: 99 (RA) Pulse Ox Interpretation: Normal Medical Decision Making Medical Decision Making: Time: 1657 Impression: Altered Mental Status Differentials include but not limited to substance abuse, alcohol abuse, electrolyte abnormality, acute renal failure and hepatic encephalopathy Plan: -- CT Head w/o contrast -- Alcohol Serum -- Ammonia -- CMP -- Urine Drug Screen -- ED Urine Dipstick -- CBC with differentials -- Glucose, POC -- Dextrose 5%/0.45% NS 1000 ml Multivitamin (MVI) M.V.I.-12 Inj 10 ml Vitamin B1 Inj 100 mg Folic Acid 1 mg IV 125 mls/hr Time: 1722 CT RESULTS FINDINGS: HEMORRHAGE: No intracranial hemorrhage. BRAIN: No mass effect or edema. Scattered periventricular and subcortical white matter hypodensities, which are nonspecific, but often seen with chronic microvascular ischemic disease. Please note that MRI with diffusion imaging is more sensitive in the detection of acute ischemic event. VENTRICLES: No hydrocephalus. CALVARIUM: Unremarkable. PARANASAL SINUSES: Unremarkable as visualized. No significant inflammatory changes. MASTOID AIR CELLS: Unremarkable as visualized. No inflammatory changes. OTHER FINDINGS: None. IMPRESSION: Nonspecific white matter changes. Time: 1899 -- Patient endorsed to Dr. Pearl, pending re-evaluation and crisis evaluation. Scribe Attestation: Documented by Audrey Jorgensen acting as a scribe for Dr. Fito Rowland MD. Provider Scribe Attestation: All medical record entries made by the Scribe were at my direction and personally dictated by me. I have reviewed the chart and agree that the record accurately reflects my personal performance of the history, physical exam, medical decision making, and the department course for this patient. I have also personally directed, reviewed, and agree with the discharge instructions and disposition. Disposition - Clinical Impression Clinical Impression: Opiate abuse, episodic - Patient ED Disposition Is Patient to be Admitted: Transfer of Care Counseled Patient/Family Regarding: Studies Performed, Diagnosis - Disposition Disposition: Transfer of Care Disposition Time: 19:00 Condition: STABLE Instructions: Drug Abuse and Drug Addiction (DC) Forms: [employer] (Serbian) Print Language: UZBEK Patient Signed Over To: Valentin Pearl
--- NOTE | 2018-02-07 19:42 | ED PDOC ---
- Laboratory Results Result Diagrams: 02/07/18 16:58 02/07/18 16:58 - ECG O2 Sat by Pulse Oximetry: 99 (RA) Pulse Ox Interpretation: Normal Medical Decision Making Medical Decision Making: Time: 190 -- Patient endorsed to me by Dr. Rowland, pending re-evaluation and crisis evaluation. 2100 Resting quietly, patient improving. 2300 No changes 0200 Crisis states he will need re-eval at 5AM 500 Patient re-eval'd by crisis, cleared by Dr. Weston, suitable for outpatient followup. Scribe Attestation: Documented by Audrey Jorgensen acting as a scribe for Dr. Valentin Pearl MD. Provider Scribe Attestation: All medical record entries made by the Scribe were at my direction and personally dictated by me. I have reviewed the chart and agree that the record accurately reflects my personal performance of the history, physical exam, medical decision making, and the department course for this patient. I have also personally directed, reviewed, and agree with the discharge instructions and disposition. Disposition - Clinical Impression Clinical Impression: Opiate abuse, episodic - POA Present On Arrival: None - Disposition Disposition: Routine/Home Disposition Time: 05:04 Condition: STABLE Instructions: Drug Abuse and Drug Addiction (DC) Forms: [employer] (Croatian) Print Language: LAO
[2018-02-08 01:43] LABS: BARBITURATES, UR NEGATIVE (NEGATIVE); BENZODIAZEPINES, UR POSITIVE (NEGATIVE); OPIATES, UR POSITIVE (NEGATIVE)
[2018-02-08 01:45] LABS: PHENCYCLIDINE, UR NEGATIVE (NEGATIVE)
[2018-02-08 03:40] VITALS: RESP 16
[2018-02-08 06:24] VITALS: BP 137/59; PULSE 68; TEMP 98.7
[2018-02-08 20:05] VITALS: O2SAT 99
== END 2018-02-08 06:42 | disposition home or self-care (01) ==
LOC: H.ER 16:22
DX: F11.10 Opioid abuse, uncomplicated (principal); E11.9 Type 2 diabetes mellitus without complications; E78.00 Pure hypercholesterolemia, unspecified; F25.9 Schizoaffective disorder, unspecified; I10 Essential (primary) hypertension; K72.90 Hepatic failure, unspecified without coma; K21.9 Gastro-esophageal reflux disease without esophagitis; Z79.84 Long term (current) use of oral hypoglycemic drugs; N17.9 Acute kidney failure, unspecified
CPT/HCPCS: 70450; 80053; 80320; 80324; 80345; 80346; 80349; 80353; 80358; 80361; 82140; 82948; 83992; 85025; 96374; 99285; J3411; J7042

== ENCOUNTER 2018-02-14 15:59 | Emergency (ER) | payer OTHER ==
[2018-02-14 15:59] VITALS: BMI 28.2
--- NOTE | 2018-02-14 16:19 | ED PDOC ---
HPI: Psych/Substance Abuse Time Seen by Provider: 02/14/18 16:06 Chief Complaint (Nursing): Substance Abuse Chief Complaint (Provider): substance abuse History Per: Patient Additional Complaint(s): 67-year-old male presents to emergency department for evaluation of substance abuse. Patient mid snorting 2 bags of heroin today. He offers no acute complaints. Patient states he uses heroin daily. PMD: none Past Medical History Reviewed: Historical Data, Nursing Documentation, Vital Signs Vital Signs: Last Vital Signs Temp 97.5 F L 02/14/18 16:01 Pulse 86 02/14/18 16:01 Resp 19 02/14/18 16:01 BP 178/93 H 02/14/18 16:01 Pulse Ox 98 02/14/18 16:01 - Medical History PMH: Anxiety, Arthritis, Asthma, Bipolar Disorder, COPD, Depression, Diabetes, GERD, HTN, Hypercholesterolemia, Hyperlipidemia, Schizophrenia - Family History Family History: States: Unknown Family Hx - Living Arrangements Living Arrangements: Other (non-domiciled) - Social History Current smoker - smoking cessation education provided: No Alcohol: None Drugs: Opiates (snorts heroin) - Home Medications Home Medications: Ambulatory Orders Medication Instructions Recorded Metoprolol Tartrate [Lopressor] 50 mg PO BID #60 tab 09/11/17 Nicotine 21 mg/24 hr [Nicoderm Cq] 1 patch TD DAILY #30 patch 09/11/17 Sertraline [Zoloft] 100 mg PO DAILY #30 tab 09/11/17 metFORMIN [glucOPHAGE] 500 mg PO BID #60 tab 09/11/17 Ondansetron ODT [Zofran ODT] 1 odt PO BID PRN #6 odt 01/14/18 Benztropine [Cogentin] 1 mg PO BID #60 tab 02/06/18 Gabapentin [Neurontin] 300 mg PO BID #60 cap 02/06/18 Gabapentin [Neurontin] 600 mg PO HS #30 tab 02/06/18 Mirtazapine [Remeron] 45 mg PO HS #30 tab 02/06/18 PARoxetine [Paxil] 40 mg PO DAILY #30 tab 02/06/18 fluPHENAZine [Prolixin] 10 mg PO BID #60 tab 02/06/18 traZODone [Desyrel] 100 mg PO HS #30 tab 02/06/18 - Allergies Allergies/Adverse Reactions: Allergies Allergy/AdvReac Type Severity Reaction Status Date / Time quetiapine [From Seroquel] Allergy ANAPHYLAXIS Verified 12/07/17 14:20 Review of Systems ROS Statement: Except As Marked, All Systems Reviewed And Found Negative Constitutional: Negative for: Fever Cardiovascular: Negative for: Chest Pain Respiratory: Negative for: Cough Gastrointestinal: Negative for: Nausea, Vomiting Neurological: Negative for: Headache, Dizziness Psych: Positive for: Other (heroin abuse) Physical Exam - Reviewed Nursing Documentation Reviewed: Yes Vital Signs Reviewed: Yes - Physical Exam Appears: Positive for: Well Skin: Positive for: Normal Color. Negative for: Rash Eye Exam: Positive for: EOMI, PERRL Cardiovascular/Chest: Positive for: Regular Rate, Rhythm Respiratory: Positive for: Normal Breath Sounds. Negative for: Wheezing, Respiratory Distress Extremity: Positive for: Normal ROM Neurologic/Psych: Positive for: Alert, Oriented - Laboratory Results Result Diagrams: 02/14/18 16:40 02/14/18 16:40 - ECG Interpretation Of ECG: Normalsinus rhythm 89 bpm, no acute finding, reviewed by PA and ED attending. O2 Sat by Pulse Oximetry: 98 Pulse Ox Interpretation: Normal - Other Rad CXR X-Ray: Interpreted by Me, Viewed By Me X-Ray Interpretation: no acute finding, hypoinflated Medical Decision Making Medical Decision Makin67 y/o male with substance abuse Plan: EKG CXR CBC CMP Troponin BAL UDS Shortly after arrival to emergency Department patient was noted to be ambulatory in ED with steady gait stating he wants to leave. Vital signs are stable, patient is stable for discharge. Disposition - Clinical Impression Clinical Impression: Substance abuse - Patient ED Disposition Is Patient to be Admitted: No Counseled Patient/Family Regarding: Studies Performed, Diagnosis, Need For Followup - Disposition Referrals: [facility] [Outside] Disposition: Routine/Home Disposition Time: 17:30 Condition: STABLE Instructions: Drug Abuse and Drug Addiction (DC), Drug Abuse Treatment Forms: [employer] (Japanese) Results - Lab Results Lab Results: 02/14/18 02/14/18 02/14/18 17:01 16:40 16:40 WBC 5.7 RBC 4.66 Hgb 14.1 Hct 41.7 MCV 89.3 MCH 30.3 MCHC 33.9 RDW 13.1 Plt Count 186 MPV 8.5 Neut % (Auto) 56.7 Lymph % (Auto) 29.2 [place] % (Auto) 10.3 H Eos % (Auto) 3.5 Baso % (Auto) 0.3 Neut # (Auto) 3.2 Lymph # (Auto) 1.7 [place] # (Auto) 0.6 Eos # (Auto) 0.2 Baso # (Auto) 0.0 Sodium 137 Potassium 4.2 Chloride 100 Carbon Dioxide 28 Anion Gap 13 BUN 10 Creatinine 0.7 L Est GFR ( Amer) > 60 Est GFR (Non-Af Amer) > 60 Random Glucose 103 Calcium 9.4 Total Bilirubin 0.4 AST 44 ALT 18 L D Alkaline Phosphatase 59 Troponin I < 0.0120 Total Protein 7.2 Albumin 4.1 Globulin 3.1 Albumin/Globulin Ratio 1.3 Urine Opiates Screen Pending Urine Methadone Screen Pending Ur Barbiturates Screen Pending Ur Phencyclidine Scrn Pending Ur Amphetamines Screen Negative U Benzodiazepines Scrn Pending U Oth Cocaine Metabols Pending U Cannabinoids Screen Pending Alcohol, Quantitative < 10
[2018-02-14] MEDS: Sodium Chloride 0.9% 1,000 ML IV STA (16:27)
[2018-02-14 17:10] LABS: BASO % 0.3 % (0.0-2.0); EOS # 0.2 K/uL (0.0-0.7); EOS % 3.5 % (0.0-4.0); HEMOGLOBIN 14.1 g/dL (12.0-18.0); LYMPH # 1.7 K/uL (1.0-4.3); LYMPH % 29.2 % (20.0-40.0); MEAN CELL VOLUME 89.3 fl (80.0-94.0); MEAN CORPUSCULAR HEMOGLOBIN 30.3 pg (27.0-31.0); MEAN CORPUSCULAR HGB CONC 33.9 g/dL (33.0-37.0); MEAN PLATELET VOLUME 8.5 fl (7.2-11.7); MONO # 0.6 K/uL (0.0-0.8); MONO % 10.3 % (0.0-10.0); NEUT # 3.2 K/uL (1.8-7.0); NEUT % 56.7 % (50.0-75.0); NRBC % 0.2 % (0.0-0.0); RBC 4.66 Mil/uL (4.40-5.90); RED CELL DISTRIBUTION WIDTH 13.1 % (11.5-14.5); WHITE BLOOD COUNT 5.7 K/uL (4.8-10.8)
[2018-02-14 17:16] LABS: ALB/GLOB RATIO 1.3 (1.0-2.1); ALBUMIN 4.1 g/dL (3.5-5.0); ALT/SGPT 18 U/L (21-72); AST/SGOT 44 U/L (17-59); BLOOD UREA NITROGEN 10 mg/dl (9-20); CALCIUM 9.4 mg/dL (8.4-10.2); GFR NON-AFRICAN AMERICAN > 60
--- NOTE | 2018-02-14 17:18 | RAD ---
HISTORY: clearance COMPARISON: Chest x-ray performed 09/13/17 TECHNIQUE: Chest, one view. FINDINGS: Examination limited by habitus and hypoinflation. LUNGS: No focal consolidation. Please note that chest x-ray has limited sensitivity for the detection of pulmonary masses. PLEURA: No significant pleural effusion identified. No definite pneumothorax . CARDIOVASCULAR: Heart size appears top normal. Atherosclerotic calcifications of an ectatic aorta. OSSEOUS STRUCTURES: No acute osseous abnormality identified. VISUALIZED UPPER ABDOMEN: Unremarkable. OTHER FINDINGS: None. IMPRESSION: Hypoinflation.
[2018-02-14 17:32] VITALS: BP 148/77; PULSE 92; RESP 18; TEMP 98.2
[2018-02-14 17:35] VITALS: O2SAT 98
[2018-02-14 17:36] LABS: BARBITURATES, UR NEGATIVE (NEGATIVE); BENZODIAZEPINES, UR NEGATIVE (NEGATIVE); OPIATES, UR POSITIVE (NEGATIVE); PHENCYCLIDINE, UR NEGATIVE (NEGATIVE)
--- NOTE | 2018-02-15 09:28 | CARD ---
APPROVED REPORT Date of service: 02/14/2018 EKG Measurement Heart [id number] <Conclusion> Normal sinus rhythm Normal ECG
== END 2018-02-14 17:40 | disposition home or self-care (01) ==
LOC: H.ER 15:59
DX: F19.10 Other psychoactive substance abuse, uncomplicated (principal); E11.9 Type 2 diabetes mellitus without complications; E78.00 Pure hypercholesterolemia, unspecified; Z79.84 Long term (current) use of oral hypoglycemic drugs
CPT/HCPCS: 71045; 80053; 80320; 80324; 80345; 80346; 80349; 80353; 80358; 80361; 83992; 84484; 85025; 93005; 96360; 99283; J7030